=== PATIENT | female | born 1940 | race Caucasian/White ===

== ENCOUNTER 2019-04-03 16:10 | Emergency (ER) | payer MEDICARE, OTHER ==
--- NOTE | 2019-04-03 16:27 | ED.PDOC ---
History of Present Illness - General Chief Complaint: Trauma Stated Complaint: fall with right and left lower ext injuires Time Seen by Provider: 04/03/19 16:24 Source: RN notes reviewed, Vital Signs reviewed, EMS notes reviewed Additional Information: 78 YEAR OLD PRESENTS WITH FALL PRIOR TO COMING AND INJURED HER RIGHT PROXIMAL LEG SHE HAS A SWELLING AND PAIN ON THE PROXIMAL LEG BELOW THE KNEE LEFT DISTAL LEG SHE HAS A 3 CM SKIN TEAR SHE WAS ABLE TO WEIGHT BEAR AND WALK AFTER THE NEAR FALL - History of Present Illness Timing/Duration: 1/2 hour Severity: mild Improving Factors: immobilization Worsening Factors: movement Associated Symptoms: denies symptoms Allergies/Adverse Reactions: Allergies NO KNOWN ALLERGY Allergy (Verified 04/03/19 16:30) Review of Systems - Review of Systems Constitutional: States: no symptoms reported EENTM: States: no symptoms reported Respiratory: States: no symptoms reported Cardiology: States: no symptoms reported Gastrointestinal/Abdominal: States: no symptoms reported Genitourinary: States: no symptoms reported Musculoskeletal: States: no symptoms reported Skin: States: no symptoms reported Neurological: States: no symptoms reported Endocrine: States: no symptoms reported Hematologic/Lymphatic: States: no symptoms reported Family Medical History - Family History Mother Living Status: Hx Family Diabetes: Yes Father Living Status: Hx Family Diabetes: Yes Physical Exam - Physical Exam General Appearance: Alert, Comfortable Eye Exam: bilateral normal Ears, Nose, Throat: hearing grossly normal, normal ENT inspection, normal pharynx Neck: non-tender, full range of motion, supple Respiratory: chest non-tender, lungs clear, normal breath sounds, no respiratory distress, no accessory muscle use Cardiovascular/Chest: normal peripheral pulses, regular rate, rhythm, no edema, no gallop, no JVD Gastrointestinal/Abdominal: normal bowel sounds, non tender, soft, no organomegaly, no pulsatile mass Back Exam: normal inspection, no CVA tenderness, no vertebral tenderness Extremity: normal range of motion, other - RIGHT LEG HEMATOMA BELOW THE THE KNEE JOINT LEFT LEG SKIN TEAR NOTED ABOVE THE ANKLE 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 Copy, Patient Portal Self Enrollment Instructions: DI for Trauma Diet: resume usual diet Referrals: Momo Hopson MD [Primary Care Provider] - 1-2 Weeks Comments: FOLLOW UP WITH YOUR MD
--- NOTE | 2019-04-03 16:57 | RAD ---
EXAM DESCRIPTION: Tibia/Fibula,Right CLINICAL HISTORY: 78 years Female, FALL COMPARISON: None. FINDINGS: Two views of the right leg demonstrate total knee replacement with anatomic alignment. The tibia and fibula appear intact plantar and Achilles calcaneal spurring is noted. No additional abnormalities noted. No soft tissue masses or foreign body seen. IMPRESSION: Right knee replacement, otherwise negative right leg. Electronically signed by: Yohan Coats MD 04/03/2019 4:55 PM CDT
[2019-04-03 17:19] VITALS: BP 133/80; TEMP 97.6; O2SAT 96
== END 2019-04-03 17:10 | disposition home or self-care (01) ==
LOC: ER 16:10
DX: S81.812A Laceration without foreign body, left lower leg, initial encounter (principal); W19.XXXA Unspecified fall, initial encounter; Y92.512 Supermarket, store or market as the place of occurrence of the external cause

== ENCOUNTER 2020-09-02 11:00 | Emergency (ER) | payer MEDICARE, OTHER ==
--- NOTE | 2020-09-02 11:27 | ED.PDOC ---
History of Present Illness - General Chief Complaint: Trauma Stated Complaint: fall, laceration to right eyebrow Time Seen by Provider: 09/02/20 11:05 Source: patient, RN notes reviewed, Vital Signs reviewed, family, old records - History of Present Illness Initial Comments: 80 yo pleasant F come from home with son after she was putting up thanksgiving decorations and tripped on cord. landed forward on right sided. no loc Glasses caused cut on her right forehead. + LOC. Only blood thinner is aspirin. Denies any other injuries. tdap given one year ago 2018. Occurred: just prior to arrival Allergies/Adverse Reactions: Allergies NO KNOWN ALLERGY Allergy (Verified 04/03/19 16:30) Home Medications: Ambulatory Orders Meclizine HCl [Meclizine 25] 12.5 mg PO TID PRN #12 tab 09/02/20 Review of Systems - Review of Systems Constitutional: Denies: chills, fever EENTM: Denies: eye pain, blurred vision, double vision, ear discharge, nose pain Respiratory: Denies: cough, short of breath Cardiology: Denies: chest pain, palpitations, syncope Gastrointestinal/Abdominal: Denies: abdominal pain, nausea Genitourinary: Denies: frequency, hematuria Musculoskeletal: Denies: back pain, joint pain, joint swelling, muscle pain, neck pain Skin: States: see HPI Neurological: Denies: headache, numbness, paresthesia, seizure, tingling, tremors, weakness Endocrine: Denies: unexplained weight gain, unexplained weight loss Hematologic/Lymphatic: Denies: easy bleeding, easy bruising Past Medical History (General) - Patient Medical History Hx Stroke: No Hx Asthma: No Hx of COPD: No Hx Cardiac Disorders: No Hx Congestive Heart Failure: No Hx Hypertension: Yes Hx Diabetes: No Hx Cancer: No Hx Hepatitis C: No - Vaccination History Hx Tetanus, Diphtheria Vaccination: Yes Hx Influenza Vaccination: Yes Hx Pneumococcal Vaccination: Yes - Social History Hx Tobacco Use: No Hx Alcohol Use: No Hx Substance Use: No Hx Substance Use Treatment: No Hx Depression: No Physical Exam - Physical Exam General Appearance: Alert, Comfortable, No apparent distress, Well Developed, Well Groomed, Well Hydrated, Well Nourished Head Injury: other - small laceration just across lateral eyebrow no sevilla sign no raccoon eyes Eye Exam: bilateral normal ENT Exam: hearing grossly normal, no evidence of ENT injury, no dental injury Peripheral Pulses: radial,right: 2+, radial,left: 2+ Cardiovascular/Respiratory: regular rate, rhythm, no M/R/G, normal peripheral pulses, no JVD, no respiratory distress Gastrointestinal/Abdominal: normal bowel sounds, non tender, soft, no organomegaly, no pulsatile mass Back Exam: normal inspection, no CVA tenderness, no vertebral tenderness Extremity Exam: no evidence of injury, normal range of motion, non-tender, no pedal edema, pelvis stable 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 patient tolerated well. post wound care instructions given. After sitting up from lac repair patient complained of room spinning sensation, lasted few seconds. no nausea. Neurologic exam unremarkable. The data reviewed when caring for this patient included: nurse notes, prior records, etc. The history and assessments from nurses notes were reviewed and considered, and the patient's home medication list was also reviewed and considered. My assessment and the results of testing completed here in the ED were discussed with the patient/family. All questions were answered, and they express understanding of my assessment and the plan. They have been instructed to return if their symptoms worsen, and have been asked to follow up with their primary care physician to recheck today's presenting complaint. Strict return precautions given. Informed of delayed bleed and need to come back if symptoms worsen. I have reviewed medication, benefits, alternatives and side effects. Patient decided to proceed with medication. Kristi Corrales DO #[id number] 09/02/20 15:06 - EKG/XRAY/CT CT: head/c-spine no acute ich or fracture Procedures - Laceration/Wound Repair Right Face Wound's Depth, Shape: superficial Wound Explored: clean Irrigated w/ Saline (cc's): 500 Betadine Prep?: No Wound Repaired With: dermabond Departure - Departure Clinical Impression: Laceration, Vertigo Fall Qualifiers: Encounter type: initial encounter Qualified Code(s): W19.XXXA - Unspecified fall, initial encounter Time of Disposition: 11:47 Disposition: Discharge to Home or Self Care Condition: Fair Departure Forms: ED Discharge - Pt. Copy, Patient Portal Self Enrollment Instructions: DI for Trauma, Vertigo (a Type of Dizziness), Preventing Falls in the Older Adult, Laceration Repair With Glue (DC) Diet: resume usual diet Activity: increase activity as tolerated Referrals: Momo Hopson MD [Primary Care Provider] - 1-5 Days Prescriptions: Meclizine HCl [Meclizine 25] 12.5 mg PO TID PRN #12 tab PRN Reason: Dizziness Home Medications: Ambulatory Orders Meclizine HCl [Meclizine 25] 12.5 mg PO TID PRN #12 tab 09/02/20
[2020-09-02 11:28] VITALS: TEMP 96.5
--- NOTE | 2020-09-02 11:44 | CT ---
EXAM DESCRIPTION: CT head without contrast CLINICAL HISTORY: fall, head trauma, on anticoagulants COMPARISON: None available TECHNIQUE: Noncontrast head CT was performed with routine protocol. FINDINGS: Normal klein-white matter differentiation. Ventricles and sulci are normal for age. Low density areas in the white matter consistent with chronic intravascular ischemic disease No high density hemorrhage, focal edema or shift of the midline. No sulcal effacement. Normal orbital contents. Basilar cisterns appear clear. Intact calvarium with no fracture or lytic lesion. Calcified intracranial internal carotid arteries. Normal aeration of tympanic cavities and mastoid air cells. Patchy opacification of left ethmoid air cells. Skull base appears intact. Symmetrical internal auditory canals. IMPRESSION: No acute intracranial pathologic process. This exam was performed according to our departmental dose-optimization program, which includes automated exposure control, adjustment of the mA and/or kV according to patient size and/or use of iterative reconstruction technique. Total DLP equals 1174.36 mGycm. Electronically signed by: Juan Carlos Berry MD 09/02/2020 11:42 AM [facility]
--- NOTE | 2020-09-02 11:54 | CT ---
EXAM DESCRIPTION: Cervical Spine CLINICAL HISTORY: fall, head trauma COMPARISON: None Available. TECHNIQUE: Cervical CT is performed with thin-section axial imaging. MPRs are created and reviewed as well. FINDINGS: Axial bone window images reveal intact ring of C1. No abnormal widening of the atlantodens interval. No fracture of the vertebral bodies or transverse processes or posterior elements. Lung apices appear clear. Markedly enlarged inhomogeneous thyroid gland consistent with multinodular goiter. This should be further evaluated with sonography. Sagittal reformatted images show normal alignment of vertebral bodies and facets. No jumped facet or facet fracture. Normal craniocervical alignment. No prevertebral soft tissue swelling. No a avulsion of the spinous processes. Spondylosis: Extensive degenerative changes in the lumbar spine with spurring at the C4-5 through C6-7 levels and degenerative loss of disc height at the levels below. High-grade spinal stenosis is evidently present although the status of the cervical spinal cord could be evaluated with MRI. At C5-6, large calcified midline and right paracentral disc herniation measures 5 mm in AP dimension and narrows the AP diameter of the spinal canal to 6.6 mm. Moderate right and moderately severe left neural foraminal narrowing related to uncinate more than facet hypertrophy. Coronal reformatted images show normal atlantooccipital and atlantoaxial alignment. The base of the dens is intact as is the body of C2. Intact lateral masses. IMPRESSION: Negative for fracture or posttraumatic subluxation. Calcified disc/osteophyte complex causes high-grade spinal stenosis at C5-6. Large inhomogeneous thyroid gland consistent with multinodular goiter. Correlate with sono findings. This exam was performed according to our departmental dose-optimization program, which includes automated exposure control, adjustment of the mA and/or kV according to patient size and/or use of iterative reconstruction technique. Total DLP equals 1174.36 mGycm. Electronically signed by: Juan Carlos Berry MD 09/02/2020 11:52 AM [facility]
[2020-09-02 12:30] VITALS: BP 162/72; O2SAT 98
== END 2020-09-02 12:29 | disposition home or self-care (01) ==
LOC: ER 11:00
DX: S01.111A Laceration without foreign body of right eyelid and periocular area, initial encounter (principal); R42 Dizziness and giddiness; M47.812 Spondylosis without myelopathy or radiculopathy, cervical region; I10 Essential (primary) hypertension; W01.0XXA Fall on same level from slipping, tripping and stumbling without subsequent striking against object, initial encounter; Y93.89 Activity, other specified; Y92.9 Unspecified place or not applicable